=== PATIENT | female | born 1980 | race Caucasian/White ===

== ENCOUNTER 2016-09-09 12:00 | Inpatient (IN) | payer BC ==
[2016-09-09] VITALS (14 sets, daily range): BP systolic 110–127; BP diastolic 57–72; PULSE 18–100; RESP 15–25; Ht 160 cm; Wt 58.0 kg
[~2016-09-09] VITALS: Ht 160 cm; Wt 58.0 kg
--- NOTE | 2016-09-09 12:29 | HPN ---
Date/Time of Note Date/Time of Note DATE: 09/09/16 TIME: 12:28 Interval H&P Admission Note Pt. seen H&P reviewed: No system changes SMITHA SANCHEZ MD Sep 09, 2016 12:28
[2016-09-09] MEDS ORDERED: HYDR-902 PO (13:01)
[2016-09-09] MEDS ORDERED: OXYC-209 PO (13:02)
[2016-09-09] MEDS ORDERED: ACYC400T2 PO (13:08)
[2016-09-09] MEDS ORDERED: MIDAZOLAM 1 MG/ML 2 ML INJ ONE (15:42)
[2016-09-09] MEDS ORDERED: POLYMYXIN/BACITRACIN 1L IRRIG ONE (16:08)
[2016-09-09] MEDS ORDERED: BUPIVACAINE 0.25%/EPI (SDV) 30 ML INJ ONE (16:10)
[2016-09-09] MEDS ORDERED: NEOMYC/POLYMYX/BACIT 30 GM OINT ONE (16:10)
[2016-09-09] MEDS ORDERED: ROCURONIUM 50 MG INJ ONE (16:54)
[2016-09-09] MEDS ORDERED: PROPOFOL 20 ML ONE (16:54)
[2016-09-09] MEDS ORDERED: SUCCINYLCHOLINE CHLORIDE 100 MG/5 ML SYG IV ONE (16:54)
[2016-09-09] MEDS ORDERED: NEOSTIGMINE 3 MG/3 ML SYRINGE ONE (16:54)
[2016-09-09] MEDS ORDERED: LIDOCAINE 2% (SDV) 5 ML INJ ONE (16:54)
[2016-09-09] MEDS ORDERED: ROPIVACAINE 0.5 % 30 ML VIAL ONE (16:54)
[2016-09-09] MEDS ORDERED: CEFAZOLIN 1 GM INJ ONE (16:54)
[2016-09-09] MEDS ORDERED: FENTAnyl 50 MCG/ML VIAL ONE (18:55)
[2016-09-09] MEDS ORDERED: SUGAMMADEX SODIUM 200 MG/2 ML VIAL IV ONE (20:17)
[2016-09-09] MEDS ORDERED: MEPERIDINE 25 MG INJ ONE (20:31)
[2016-09-09] MEDS ORDERED: ONDANSETRON 4 MG INJ IV PRN (21:00)
[2016-09-09] MEDS ORDERED: CEFAZOLIN 1 GM INJ IV SCH (21:00)
[2016-09-09] MEDS ORDERED: FENTAnyl 50 MCG/ML VIAL IV PRN ×2 (21:00)
[2016-09-09] MEDS ORDERED: METOCLOPRAMIDE 10 MG INJ IV PRN (21:00)
[2016-09-09] MEDS ORDERED: HYDROmorphONE 0.2 MG/ML PCA IV SCH (21:00)
[2016-09-09] MEDS ORDERED: DIPHENHYDRAMINE 50 MG INJ IV PRN (21:00)
[2016-09-09] MEDS ORDERED: HYDROmorphONE (0.2 MG/ML) 10ML SYG IV PRN ×3 (21:00)
[2016-09-09] MEDS ORDERED: MEPERIDINE 25 MG INJ IV PRN (21:00)
[2016-09-09] MEDS ORDERED: MAGNESIUM HYDROXIDE 30ML CUP PO PRN (21:00)
[2016-09-09] MEDS ORDERED: DIPHENHYDRAMINE 25 MG CAP PO PRN (21:00)
[2016-09-09] MEDS ORDERED: ALBUTEROL 0.083% (NEB) 2.5 MG/3 ML AMP HHN ONE (21:00)
[2016-09-09] MEDS: HYDROmorphONE 0.2 MG/ML PCA IV SCH (21:10)
[2016-09-09] MEDS: SENNA/DOCUSATE NA (8.6MG/50MG) TAB PO SCH (22:25)
--- NOTE | 2016-09-10 00:45 | RADRPT ---
PROCEDURE: Fluoroscopy. CLINICAL INDICATION: Intraoperative fluoroscopic guidance. ORIF left foot TECHNIQUE: Fluoroscopic guidance provided for ORIF left foot procedure. COMPARISON: None FINDINGS: 444.8 seconds fluoroscopy time was used. 6 intraoperative spot radiographs obtained. Pinning of the fourth and fifth tarsometatarsal joints and first through third fixation plate and screws in place along the dorsal aspect of the tarsometatarsal joints. IMPRESSION: Fluoroscopic guidance provided for intraoperative procedure. RPTAT:AAJJ Physician Esa Date Time Electronically viewed and signed by Physician Esa on 09/10/2016 00:44 ALPHONSE/
[2016-09-10] MEDS: CEFAZOLIN 1 GM/50 ML (PMX) 50 ML IVPB SCH ×3 (00:55→16:35)
[2016-09-10] MEDS: HYDROmorphONE 0.2 MG/ML PCA IV SCH ×4 (03:50→20:14)
[2016-09-10] MEDS ORDERED: HYDROmorphONE 1 MG/ML SYG IV STA (08:01)
[2016-09-10] MEDS ORDERED: NALOXONE (0.4 MG/ML) INJ IV PRN (08:30)
[2016-09-10] MEDS: OXYCODONE/ACETAMINOPHEN (10/325) TAB PO SCH ×4 (08:40→20:36)
[2016-09-10] MEDS: SENNA/DOCUSATE NA (8.6MG/50MG) TAB PO SCH ×2 (08:40→20:36)
[2016-09-10] MEDS: GABAPENTIN 300 MG CAP PO SCH ×3 (08:40→20:36)
[2016-09-10] MEDS: ONDANSETRON 4 MG INJ IV PRN ×4 (08:47→20:33)
[2016-09-10 09:13] VITALS: BP 110/57; RESP 19
[2016-09-10 12:00] VITALS: BP 104/62; RESP 18
--- NOTE | 2016-09-10 14:39 | CONS ---
Date/Time of Note Date/Time of Note DATE: 09/10/16 TIME: 14:37 Consultation Date/Type/Reason Admit Date/Time Sep 09, 2016 at 12:21 Initial Consult Date 09/10/16 Type of Consultation: Anesthesiology Reason for Consultation follow up 24 HR Interval Summary Free Text/Dictation Pt seen and examined at bedside is POD#1 s/p Left Midfoot fracture repair. Pt received a Left Sciatic nerve block for post op pain control. 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 No V/D/C/Numbness in extremities. Will continue to follow. Exam/Review of Systems Vital Signs Vitals Vital Signs Date Time Temp Pulse Resp B/P Pulse Ox O2 Delivery O2 Flow Rate FiO2 09/10/16 13:00 17 09/10/16 09:13 98.0 88 110/57 97 09/10/16 08:00 Nasal Cannula 2.0 Intake and Output 09/09/16 09/09/16 09/10/16 14:59 22:59 06:59 Intake Total 1400 ml 750 ml Output Total 12 ml 1000 ml Balance 1388 ml -250 ml Results Results 24 hrs Laboratory Tests Test 09/10/16 05:42 Lab Scanned Report LAB Medications Medications Current Medications Senna/Docusate Sodium (Senokot-S) 1 tab BID PO Last administered on 09/10/16 08:40; Admin Dose 1 TAB; Start 09/09/16 at 21:00 Magnesium Hydroxide (Milk Of Mag) 30 ml BID PRN PO CONSTIPATION; Start at 21:00 Ondansetron HCl (Zofran Inj) 4 mg Q4H PRN IV NAUSEA AND/OR VOMITING Last administered on 09/10/16 12:21; Admin Dose 4 MG; Start 09/09/16 at 21:00 Diphenhydramine HCl 25 mg 25 mg Q4H PRN PO ITCHING; Start 09/09/16 at 21:00 Cefazolin Sodium (Ancef 1 Gm/50 ml (Pmx)) 50 ml @ 100 mls/hr Q8H IVPB Last administered on 09/10/16 08:40; Admin Dose 100 MLS/HR; Start 09/10/16 at 01:00 ; Stop 09/11/16 at 17:29 Hydromorphone HCl (Dilaudid PUBLIC SAFETY TEACHER) MG/HR CONTINUOUS RATE 0.2 MG DOSE ... Q4PCA IV Last administered on 09/10/16 12:30; Admin Dose 6 MG; Start 09/09/16 at 21:00 Oxycodone/ Acetaminophen (Endocet (10/ 325)) 1 tab Q4H PO Last administered on 09/10/16 12:24; Admin Dose 1 TAB; Start 09/10/16 at 08:30 Gabapentin (Neurontin) 300 mg TID PO Last administered on 09/10/16 12:24; Admin Dose 300 MG; Start 09/10/16 at 09:00 Naloxone HCl (Narcan) 0.4 mg Q3M PRN IV resp depression ; Start 09/10/16 at 08: 30 Aspirin (Aspirin) 81 mg DAILY PO ; Start 09/10/16 at 13:30 ZULY WAGONER Sep 10, 2016 14:39
[2016-09-10 16:00] VITALS: BP 130/69; RESP 16
[2016-09-10] MEDS: ASPIRIN 81 MG TAB PO SCH (16:35)
[2016-09-10 20:29] VITALS: BP 109/58; RESP 20
[2016-09-11] MEDS: ONDANSETRON 4 MG INJ IV PRN ×4 (00:31→12:11)
[2016-09-11] MEDS: CEFAZOLIN 1 GM/50 ML (PMX) 50 ML IVPB SCH ×2 (00:31→08:33)
[2016-09-11] MEDS: OXYCODONE/ACETAMINOPHEN (10/325) TAB PO SCH ×4 (00:32→12:11)
--- NOTE | 2016-09-11 05:23 | PN ---
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 - reg diet - ASA, SCDS, teds -- E Polly SAMANO Subjective 24 Hr Interval Summary NOTE FROM 09/10/2016 - 12:50 PM Patients pain is better controlled, but still with nausea Feeding: advancing diet Pain Control: mild Exam/Review of Systems Vital Signs Vitals Vital Signs Date Time Temp Pulse Resp B/P Pulse Ox O2 Delivery O2 Flow Rate FiO2 09/11/16 01:00 18 09/10/16 20:29 99.1 76 109/58 99 09/10/16 20:20 Nasal Cannula 2.0 Intake and Output 09/10/16 09/10/16 09/11/16 15:00 23:00 07:00 Intake Total 50 ml 1160 ml 700 ml Output Total 900 ml 1200 ml Balance 50 ml 260 ml -500 ml Exam Constitutional: alert, oriented, well developed Musculoskeletal: other (LLE/ SPlint intact, toes wiggle slightly, decreased sens to lt touch to the fdws, dorsal toes, intact to plantar and latera, cr brisk) SMITHA SANCHEZ MD Sep 11, 2016 05:23
[2016-09-11 08:17] VITALS: BP 119/67; RESP 18
[2016-09-11] MEDS: ASPIRIN 81 MG TAB PO SCH (08:32)
[2016-09-11] MEDS: SENNA/DOCUSATE NA (8.6MG/50MG) TAB PO SCH (08:32)
[2016-09-11] MEDS: GABAPENTIN 300 MG CAP PO SCH ×2 (08:32→12:11)
--- NOTE | 2016-09-11 11:20 | DS ---
Date/Time of Note Date/Time of Note DATE: 09/11/16 TIME: 11:20 Discharge Summary Admission/Discharge Info Admit Date/Time Sep 09, 2016 at 12:21 Discharge Date/Time 09/11/16 Discharge Diagnosis Left foot Lisfranc fracture dislocation Patient Condition: Good Procedures Left foot Lisfranc fracture dislocation ORIF of the 2/3/ TMTJ with CRPP of the / TMTJ Hospital Course Patient admitted post op with severe pain. Patient's exam similar to preop with decreased sensation at the first dorsal webspace. Toes wiggle. Pain is better controlled on day of discharge Home Meds Reported Medications Acyclovir* (Acyclovir*) 400 Mg Tablet, 400 MG PO BID, TAB 09/09/16 Oxycodone HCl/Acetaminophen (Percocet 10-325 mg Tablet) 1 Each Tablet, 1 EACH PO QHS Y for PAIN, TAB 09/09/16 Hydrocodone/Acetaminophen ([place] 10-325 Tablet) 1 Each Tablet, 1 EACH PO Q4 Y for PAIN, TAB 09/09/16 Follow-up Plan [address] Maria G Sanchez Primary Care Provider Dr. Isaacs Time spent on discharge: > 30 minutes Pending Labs Laboratory Tests Test 09/10/16 20:29 Lab Scanned Report REFERENCE [id number] SMITHA SANCHEZ MD Sep 11, 2016 11:20
--- NOTE | 2016-09-11 11:20 | PN ---
Date/Time of Note Date/Time of Note DATE: 09/11/16 TIME: 11:19 Assessment/Plan Lines/Catheters IV Catheter Type (from Nrsg): Peripheral IV Rodgers in Place (from Nrsg): No Subjective 24 Hr Interval Summary Doing much better today with pain well controlled Constitutional: no complaints Feeding: advancing diet Pain Control: well controlled Exam/Review of Systems Vital Signs Vitals Vital Signs Date Time Temp Pulse Resp B/P Pulse Ox O2 Delivery O2 Flow Rate FiO2 09/11/16 09:00 19 09/11/16 08:17 98.0 79 119/67 95 09/10/16 20:20 Nasal Cannula 2.0 Intake and Output 09/10/16 09/10/16 09/11/16 15:00 23:00 07:00 Intake Total 50 ml 1160 ml 700 ml Output Total 900 ml 1200 ml Balance 50 ml 260 ml -500 ml Exam Constitutional: alert, oriented, well developed Musculoskeletal: other (LLE/ Splint intact, toes wiggle slightly, decreased sens to lt touch to the fdws, dorsal toes, intact to plantar and lateral, cr brisk) SMITHA SANCHEZ MD Sep 11, 2016 11:19
--- NOTE | 2016-09-11 11:23 | PDOCDIS ---
Discharge Instructions DIAGNOSIS Discharge Diagnosis left lisfranc fracture dislocation CONDITION Patient Condition: Good HOME CARE INSTRUCTIONS: Diet Instructions: RegularSpecial Diet: RD ACTIVITY: Activity Restrictions: Avoid heavy lifting Do not Drive Do not operate Machinery Do not operate Power Tool Avoid Heavy Housework Keep Limb Elevated No Weight Bearing Bathing Restrictions: Shower FOLLOW UP/APPOINTMENTS Follow-up Plan 1 week with SMITHA Rueda MD Sep 11, 2016 11:23
[2016-09-11] MEDS ORDERED: ASPI81TA3 PO (11:25)
--- NOTE | 2016-09-17 11:22 | OPR ---
DATE OF OPERATION: 09/09/2016 PREOPERATIVE DIAGNOSES: 1. Left foot Lisfranc dislocation of the 1st and 2nd tarsometatarsal joint. 2. Lateral dislocation of the 2nd, 3rd, 4th and 5th tarsometatarsal joints. 3. Comminuted fracture of the base of the 2nd metatarsal. 4. Fracture of the middle medial and lateral cuneiforms. 5. Fracture of the cuboid joint. POSTOPERATIVE DIAGNOSES: 1. Left foot Lisfranc dislocation of the 1st and second tarsometatarsal joint. 2. Lateral dislocation of the 2nd, 3rd, 4th and 5th tarsometatarsal joints. 3. Comminuted fracture of the base of the second metatarsal. 4. Fracture of the middle medial and lateral cuneiforms. 5. Fracture of the cuboid joint. OPERATION PERFORMED: 1. Open reduction, internal fixation of the 1st, 2nd, 3rd tarsometatarsal joints with application of allograft to the second metatarsal shaft comminuted fracture 2. Closed reduction, percutaneous pinning of the 4th and 5th [facility] [place] [facility] that she is doing better this morning. She is oxygenating a little bit but does not what would happen tarsometatarsal joints. 3. Use of fluoroscopy. 4. Application of a short-leg splint. SURGEON: Vladimir Matias MD. BARREL FINISHER: Fredrick Waggoner MD. ANESTHESIA TYPE: General with popliteal block. IMPLANTS: 1. H3 [employer] Ortholoc 3Di U-plate with associated screws. 2. H3 [employer] 4-hole straight plate. 3. Two 1.6 mm K-wires. TOURNIQUET TIME: 130 minutes at 250 mmHg. COMPLICATIONS: None. DISPOSITION: Stable to PACU. INDICATIONS: Patient is a 36-year-old female, who sustained a significant Lisfranc fracture dislocation of the 1st, 2nd, 3rd, 4th and 5th tarsometatarsal joints and non-displaced fracture of the cuboid approximately 7-10 days prior to surgery. Patient's swelling had dissipated by the time of surgery and preoperatively had decreased sensation to the 1st dorsal web space distribution. Patient was indicated for surgery based off the preoperative diagnosis. RISKS: Patient understood the risks and benefits of surgery in the patient's [place] language, including, but not limited to infection, bleeding, loss of limb , loss of life, need for future surgery and risks of injury to blood vessels, nerves and tendons. Patient understood possible need for future surgery due to post traumatic osteoarthritis that may develop as a result of this injury. Patient agreed and acknowledged these risks and signed to surgical consent. OPERATIVE PROCEDURE: Patient was met in the preoperative holding area and operative extremity was confirmed with both patient and consent. Patient was then brought into the operative theater, placed supine on the operating room table and given preoperative regional anesthesia and preoperative antibiotics. Patient was then prepped and draped in the normal sterile fashion. Time-out was taken, all parties in the room agreed this was the correct patient, extremity and procedure. Tourniquet was brought up to 250 mmHg and an initial medial incision was made directly over the 1st and second tarsometatarsal joint with care to avoid any neurovascular structures. The EHL was identified and retracted laterally in order to protect the neurovascular structures. Full thickness flap was made to expose the medial margins in the 1st tarsometatarsal joint. The 1st tarsometatarsal joint was found to be slightly dislocated medially and the base of the 2nd metatarsal joint was found to be comminuted with multiple fragments. The comminuted pieces were debrided and the main fragments were reduced and held in place with K-wires. The 1st tarsometatarsal joint was reduced and held in place with a K-wire and the 2nd tarsometatarsal joint was reduced and held in place with a K-wire. The deep peroneal nerve was identified and found to be contused with partial laceration at the deep web space with significant hematoma of the nerve itself. Approximately 30 percent of the articular surface of the 2nd TMT joint had some comminution at the base of the 2nd Metatarsal with multiple fracture fragments of the distal shaft and the remainder of the joints were irrigated. The 1st TMT joint was provisionally reduced and held in place and then the second TMT joint was held in place and reduced. A H3 [employer] U-plate was placed over the 1st and 2nd TMT and the middle and medial cuneiform and fixated in typical fashion. A screw was then placed in the base of 1st metatarsal to the base of the 2nd metatarsal to hold the base of the 2nd metatarsal in place given its comminution and lack of ability to strongly hold a Lisfranc screw at the base of the 2nd metatarsal. Additionally, allograft was then added to the bone loss in the shaft of the 2nd metatarsal. Once reduction was found to be well achieved, the 5th TMT joint was then pinned with a 1.6 mm Christin wire and the 4th TMT joint was then reduced in likewise fashion with a 1.6 mm K-wire. An incision was made over the 3rd TMT joint and fracture was noted at the lateral cuneiform. A 4-hole plate was then placed across the 3rd TMT joint in typical fashion and shown to be well reduced on both the AP, oblique and lateral positions. Once final fluoroscopic images were obtained and confirmed articular reduction and implant placement, the wound was irrigated thoroughly and closed in layers with 2-0 Vicryl followed by 3-0 Monocryl and 4-0 nylon in a vertical mattress fashion. All wounds were dressed with 4 x 4's, Xeroform, triple-antibiotic ointment and placed in a well-padded short-leg splint with 5 ABDs, 5 Webrils and all bony prominences well padded. At the end of the case, the toes were warm and well perfused. Patient arrived in the PACU in stable condition. All sponge and needle counts were correct BARREL FINISHER NOTE: The need for an orthopedic surgical technologist was necessary in this very complex case in order to hold the reduction and assist in drilling while the fracture was held in reduction. Without the assist of an orthopedic-trained assistant manager retail, the case would have been extensively more difficult and much longer, thus the orthopedic surgeon assistant manager retail should be compensated accordingly. Dictated By: Vladimir Matias MD /delfin/pippa /Document#: [id number] SAMARIA
== END 2016-09-11 14:22 | disposition home or self-care (01) | DRG 505 ==
LOC: REC 12:21 → EDSTATUS 16:30 → MS1 21:50
PROVIDERS: ADMIT Orthopaedic Surgery; ATTEND Orthopaedic Surgery
PROC: 0QSP04Z Reposition Left Metatarsal with Internal Fixation Device, Open Approach (ICD-10-PCS; 2016-09-09)
PROC: 0QUP0KZ Supplement Left Metatarsal with Nonautologous Tissue Substitute, Open Approach (ICD-10-PCS; 2016-09-09)
PROC: 0SS Lower Joints, Reposition (ICD-10-PCS; 2016-09-09)
PROC: 0SSL04Z Reposition Left Tarsometatarsal Joint with Internal Fixation Device, Open Approach (ICD-10-PCS; principal; 2016-09-09 16:30)
DX: S92.312A Displaced fracture of first metatarsal bone, left foot, initial encounter for closed fracture (principal); S94.22XA Injury of deep peroneal nerve at ankle and foot level, left leg, initial encounter; G89.18 Other acute postprocedural pain; S92.322A Displaced fracture of second metatarsal bone, left foot, initial encounter for closed fracture; S92.332A Displaced fracture of third metatarsal bone, left foot, initial encounter for closed fracture; S92.342A Displaced fracture of fourth metatarsal bone, left foot, initial encounter for closed fracture; S92.352A Displaced fracture of fifth metatarsal bone, left foot, initial encounter for closed fracture; S92.215A Nondisplaced fracture of cuboid bone of left foot, initial encounter for closed fracture; S92.242A Displaced fracture of medial cuneiform of left foot, initial encounter for closed fracture; S92.222A Displaced fracture of lateral cuneiform of left foot, initial encounter for closed fracture; W18.30XA Fall on same level, unspecified, initial encounter; Y93.83 Activity, rough housing and horseplay
CPT/HCPCS: 82306; 97116; 97163; 97530; C1713; J0690; J1170; J2175; J2250; J2405; J2710; J2795; J3010; J7999